=== PATIENT | female | born 1965 | race Caucasian/White ===

== ENCOUNTER → 2019-06-01 08:56 | Outpatient (BNVA) | payer MEDICARE, SELFPAY | PROVIDERS: Family Provider Family Medicine; PCP Family Medicine; Visit Provider Anesthesiology | DX: G89.29 Other chronic pain (principal); M54.16 Radiculopathy, lumbar region; M51.36 Other intervertebral disc degeneration, lumbar region; M47.817 Spondylosis without myelopathy or radiculopathy, lumbosacral region; M47.819 Spondylosis without myelopathy or radiculopathy, site unspecified; M54.12 Radiculopathy, cervical region; M50.30 Other cervical disc degeneration, unspecified cervical region; M25.562 Pain in left knee; M25.551 Pain in right hip; M79.7 Fibromyalgia | CPT/HCPCS: 99214 ==

== ENCOUNTER 2019-09-07 01:22 | Observation (INO) | payer SELFPAY ==
[2019-09-07] VITALS (20 sets, daily range): BP systolic 118–210; BP diastolic 65–119; PULSE 53–106; RESP 16–20; TEMP 36.5–36.9; O2SAT 93–99; BMI 32.1
--- NOTE | 2019-09-07 01:25 | ECG_ITS ---
Measurements Intervals [place] Rate: 58 P: 28 UT: 199 QRS: 0 QRSD: 87 T: 10 QT: 450 QTc: 444 SINUS BRADYCARDIA MINIMAL VOLTAGE CRITERIA FOR LVH, CONSIDER NORMAL VARIANT [MEETS CRITERIA IN ONE OF: R(aVL), S(V1), R(V5), R(V5/V6)+S(V1)] Compared to ECG 05/12/2018 20:50:33 No significant changes Electronically Signed On 09-08-2019 6:39:13 CDT by Akin Law M.D. [email or web address]
--- NOTE | 2019-09-07 01:55 | W.ED.NEUROSD ---
HPI - Neuro Symptoms/Deficit General: Chief Complaint: Neuro Symptoms/Deficit Stated Complaint: BLURRY VISION Time Seen by Provider: 09/07/19 01:23 History of Present Illness: HPI Narrative: Ms. Lopez is a nice 54-year-old female who comes in after 2 syncopal episodes at home. She states that she felt fine when going to bed but then got up at night to go to the bathroom and felt lightheaded and dizzy when she did so but was able to sit on the toilet without problem. She denied preceding chest pain, palpitations or abdominal/back pain. Patient had diarrhea on the toilet but when finished she tried to get up off the toilet and felt even more lightheaded and dizzy and fell against the wall sliding to the floor. The patient did not report any melena or hematochezia. The patient's family found her sitting against the wall and then while sitting against the wall she had another loss of consciousness for possibly 30 seconds. No seizure activity was described. EMS arrived and got a blood pressure of 73/44 initially. Since that time they report her blood pressure being erratic being high and low. The patient denies any lateralizing weakness, difficulty with speech but did have blurry vision upon initial awakening but that has completely resolved. Associated symptoms: Reports syncope; Deny chest pain, diaphoresis, headache(s), malaise, nausea, vertigo or vomiting Review of Systems General: Reports: other (negative unless marked) Const: Denies: fever, chills, body aches, fatigue, malaise or diaphoresis Eyes: Denies: change in vision or blurry vision ENMT: Denies: throat pain, painful swallowing, hoarseness, ear pain, ear discharge, Change in hearing or nasal discharge Card: Reports: lightheadedness and syncope; Denies: chest pain, palpitations, irregular heart rhythm, shortness of breath on exertion or shortness of breath when lying down Resp: Denies: shortness of breath, productive cough, non-productive cough, wheezing, coughing up blood or chest congestion GI: Denies: abdominal pain, nausea, vomiting, vomiting blood, coffee grounds in vomit, constipation, cramping, blood in stool or black tarry stool : Denies: flank pain, painful urination, urinary frequency, urinary urgency, decreased urine ouput, urinary incontinence or blood in urine Musc: Denies: neck pain, back pain, extremity pain, extremity swelling, joint pain, joint swelling, joint warmth or joint stiffness Skin/Breast: Denies: rash, skin tenderness or yellow skin Neuro: Denies: headache, numbness in extremities, weakness in extremities, changes in sensation, lack of coordination, difficulty walking, dizziness, vertigo or confusion Endo: Denies: excessive thirst, tired all the time, cold intolerance, excessive sweating, flushing or hot flashes Stoney/Lymph: Denies: easy bruising, easy bleeding, petechiae or enlarged lymph nodes All/Imm: Denies: hives, throat swelling, tongue swelling, facial swelling or acute wheezing PFSH ED PFSH: Medical History Chronic lumbosacral pain Chronic radicular low back pain DDD (degenerative disc disease), cervical DDD (degenerative disc disease), lumbar Encounter for long-term use of opiate analgesic Facet arthropathy Fibromyalgia Hip pain, right Left knee pain Lumbosacral spondylosis without myelopathy Radiculitis of left cervical region Surgical History S/P arthroscopic surgery of left knee S/P section S/P thyroidectomy S/P tonsillectomy and adenoidectomy 1989 Family History Mother Clotting disorder Cancer SKIN Social History Smoking and tobacco status: former smoker Second hand smoke exposure: Yes Alcohol intake: current Alcohol intake frequency: other Alcohol type: other Desire information about alcohol rehabilitation?: No Physical Exam Const: COMMON NORMALS: no apparent distress, oriented x3, no limitations, healthy appearing and well nourished EXAM LIMITATIONS: no altered mental status GENERAL APPEARANCE: cooperative, well kempt and well developed ORIENTATION/CONSCIOUSNESS: Yes awake HENMT: COMMON NORMALS: normocephalic, head/scalp atraumatic, hearing grossly normal bilaterally, external ears normal, EAC's normal, external nose normal and moist oral mucous membranes HEAD & SCALP: normal to inspection, normocephalic and atraumatic FACE & SINUS: normal facial exam and face symmetric NOSE: external nose normal and nares normal EXTERNAL EAR: Yes external ears normal EXTERNAL AUDITORY CANAL: EAC's normal MOUTH: oral and palatal mucosa normal and tongue normal Eye: COMMON NORMALS: PERRL, EOMs intact bilaterally, conjunctivae normal and no scleral icterus GENERAL EYE: normal appearance of both eyes and normal light reflex CONJUNCTIVA: Yes conjunctivae normal SCLERA: sclerae normal CORNEA: Yes corneas normal PUPIL: Yes PERRL DIRECT OPHTHALMOSCOPY: Yes normal light reflex Neck/C-Spine: COMMON NORMALS: full ROM, no lymphadenopathy, supple, no meningeal signs and no JVD GENERAL: Yes normal visual inspection and Yes trachea midline CERVICAL SPINE: Yes cervical ROM normal Chest: COMMONS NORMALS: inspection of chest normal and palpation of chest normal Resp: COMMON NORMALS: normal respiratory effort, no retractions, no use of accessory muscles and clear to auscultation bilaterally EFFORT & INSPECTION: Yes able to speak in complete sentences AUSCULTATION: clear to auscultation bilaterally Cardio: COMMON NORMALS: no JVD, regular rate, regular rhythm, S1 normal heart sound, S2 normal heart sound, no gallops, no clicks, no murmurs and no rub JUGULAR VENOUS DISTENTION: no JVD RATE: regular rate RHYTHM: regular rhythm HEART SOUNDS: S1 normal and S2 normal GI: COMMON NORMALS: soft to palpation, non-tender, no hepatosplenomegaly and no masses INSPECTION: Yes normal to inspection PALPATION: Yes soft and Yes no hepatosplenomegaly : COMMON NORMALS: Yes no CVA tenderness BLADDER/KIDNEY EXAM: Yes no CVA tenderness Back/Pelvis: COMMON NORMALS: no CVA tenderness, thoracic and lumbar spine normal to inspection, no thoracic nor lumbar tenderness and thoraco-lumbar ROM normal Extremity: COMMON NORMALS: normal to inspection, full ROM, normal capillary refill, no joint enlargement, no clubbing, cyanosis or edema and no calf tenderness Neuro: COMMON NORMALS: oriented x3, CN's II-XII intact bilaterally, moves all extremities, no focal motor deficits and no sensory deficits noted MENINGEAL SIGNS: Yes no meningeal signs Psych: COMMON NORMALS: mental status grossly normal, thought process normal, cooperative, affect normal, speech normal and activity/motor behavior normal APPEARANCE: Yes well kempt SPEECH: Yes normal speech THOUGHT PROCESS: normal thought process Skin: COMMON NORMALS: no rashes or lesions noted, skin turgor normal, no jaundice, no petechiae and no mottling GENERAL SKIN EXAM: no rashes or lesions noted and turgor normal Course ED course: 0200 -EKGs reviewed with Dr. Law, he does not feel these are consistent with a STEMI. He believes the findings are normal variant. Old EKG was also sent to him for comparison. Vital Signs: Vital signs: Vital Signs Temperature 98.2 F 09/07/19 01:25 Pulse Rate 66 09/07/19 04:41 Respiratory Rate 18 09/07/19 04:41 Blood Pressure 156/92 09/07/19 04:41 Pulse Oximetry 99 09/07/19 04:41 MDM - Neuro Symptoms/Deficit MDM Narrative: Medical decision making narrative: The case was reviewed with Dr. Bunn. The patient has an abnormal EKG, history of a tacky arrhythmia and a repeated episodes of syncope here. The patient is likely just volume depleted and had a vasovagal spell but with these risk factors she agrees the patient would be more safe if she were to stay for telemetry monitoring, formal cardiac rule out and possible echo. Lab Data: Labs: Lab Results 09/07/19 09/07/19 09/07/19 Range/Units 02:00 02:00 02:00 WBC 10.8 H (4.0-10.0) 10^3/ uL RBC 4.69 (4.1-5.3) 10^6/u L Hgb 13.4 (11.5-15.3) g/dL Hct 42.5 (37.0-47.0) % MCV 90.6 (81-99) fL MCH 28.6 (28.0-34.0) pg MCHC 31.5 (30.0-36.0) g/dL RDW 14.6 (12.1-15.1) % Plt Count 262 (130-400) 10^3/c mm MPV 11.7 H (7.4-10.4) fL Neut % (Auto) 76.6 % Lymph % (Auto) 15.3 % [place] % (Auto) 6.2 % Eos % (Auto) 0.7 % Baso % (Auto) 0.5 % Neut # (Auto) 8.3 H (1.8-7.7) 10^3/u L Lymph # (Auto) 1.7 (0.8-4.8) 10^3/u L [place] # (Auto) 0.7 (0.2-0.9) 10^3/u L Eos # (Auto) 0.1 (0.0-0.8) 10^3/u L Baso # (Auto) 0.1 (0.0-0.1) 10^3/u L Nucleated RBC % (a uto) 0 % Nucleated RBCs # 0.0 /100WBC Sodium 137 (136-145) mmol/L Potassium 4.4 (3.5-5.1) mmol/L Chloride 98 (98-107) mmol/L Carbon Dioxide 26 (22-29) mmol/L Anion Gap 17.4 (5-19) BUN 22 H (6-20) mg/dL Creatinine 1.0 H (0.5-0.9) mg/dL GFR Calculation 57.4 L (90-130) mL/min Glucose 119 H (65-115) mg/dL Calculated Osmolal ity 282 L (285-295) mOsm/k g Calcium 10.2 (8.5-10.5) mg/dL Magnesium 2.3 (1.7-2.3) mg/dL Total Bilirubin 0.7 (0.15-1.2) mg/dL AST 27 (0-32) U/L ALT 21 (0-33) U/L Alkaline Phosphata se 87 (35-105) IU/L Creatine Kinase 84 (26-192) U/L Troponin T Baselin e (0-10) ng/mL Troponin T 120 Min bishop (0-10) ng/mL Delta Troponin T (0-10) ABS# Total Protein 7.4 (6.6-8.7) g/dL Albumin 4.7 (3.5-5.2) g/dL Globulin 2.7 (1.3-4.6) g/dL TSH 4.86 H (0.27-4.20) uIU/ mL Urine Color (Yellow) Urine Appearance (CLEAR) Urine pH (5-7) Ur Specific Gravit y (1.005-1.030) Urine Protein (Negative) Urine Glucose (UA) (Normal) Urine Ketones (Negative) Urine Blood (Negative) Urine Nitrate (Negative) Urine Bilirubin (NEGATIVE) Urine Urobilinogen (Negative) mg/dL Ur Leukocyte Kimmie ase (Negative) Urine RBC (0-2) /hpf Urine WBC (0-5) /hpf Ur Squamous Epith Cells (0-5) Urine Bacteria (NONE) Urine Opiates Scre en (Negative) ng/mL Ur Barbiturates Sc reen (Negative) ng/mL Ur Phencyclidine S crn (Negative) ng/mL Ur Amphetamines Sc reen (Negative) ng/mL U Benzodiazepines Scrn (Negative) ng/mL Urine Cocaine Scre en (Negative) ng/mL U Marijuana (THC) Screen (Negative) ng/mL Serum Ketones Negative (Negative) 09/07/19 09/07/19 09/07/19 Range/Units 02:00 04:11 04:11 WBC (4.0-10.0) 10^3/ uL RBC (4.1-5.3) 10^6/u L Hgb (11.5-15.3) g/dL Hct (37.0-47.0) % MCV (81-99) fL MCH (28.0-34.0) pg MCHC (30.0-36.0) g/dL RDW (12.1-15.1) % Plt Count (130-400) 10^3/c mm MPV (7.4-10.4) fL Neut % (Auto) % Lymph % (Auto) % [place] % (Auto) % Eos % (Auto) % Baso % (Auto) % Neut # (Auto) (1.8-7.7) 10^3/u L Lymph # (Auto) (0.8-4.8) 10^3/u L [place] # (Auto) (0.2-0.9) 10^3/u L Eos # (Auto) (0.0-0.8) 10^3/u L Baso # (Auto) (0.0-0.1) 10^3/u L Nucleated RBC % (a uto) % Nucleated RBCs # /100WBC Sodium (136-145) mmol/L Potassium (3.5-5.1) mmol/L Chloride (98-107) mmol/L Carbon Dioxide (22-29) mmol/L Anion Gap (5-19) BUN (6-20) mg/dL Creatinine (0.5-0.9) mg/dL GFR Calculation (90-130) mL/min Glucose (65-115) mg/dL Calculated Osmolal ity (285-295) mOsm/k g Calcium (8.5-10.5) mg/dL Magnesium (1.7-2.3) mg/dL Total Bilirubin (0.15-1.2) mg/dL AST (0-32) U/L ALT (0-33) U/L Alkaline Phosphata se (35-105) IU/L Creatine Kinase (26-192) U/L Troponin T Baselin e 10 (0-10) ng/mL Troponin T 120 Min bishop (0-10) ng/mL Delta Troponin T (0-10) ABS# Total Protein (6.6-8.7) g/dL Albumin (3.5-5.2) g/dL Globulin (1.3-4.6) g/dL TSH (0.27-4.20) uIU/ mL Urine Color Yellow (Yellow) Urine Appearance Clear (CLEAR) Urine pH 5 (5-7) Ur Specific Gravit y 1.015 (1.005-1.030) Urine Protein Neg (Negative) Urine Glucose (UA) Norm (Normal) Urine Ketones Negative (Negative) Urine Blood Neg (Negative) Urine Nitrate Negative (Negative) Urine Bilirubin Neg (NEGATIVE) Urine Urobilinogen Norm (Negative) mg/dL Ur Leukocyte Kimmie ase Negative (Negative) Urine RBC Rare (0-2) /hpf Urine WBC Rare (0-5) /hpf Ur Squamous Epith Cells Rare (0-5) Urine Bacteria Trace (NONE) Urine Opiates Scre en Negative (Negative) ng/mL Ur Barbiturates Sc reen Negative (Negative) ng/mL Ur Phencyclidine S crn Negative (Negative) ng/mL Ur Amphetamines Sc reen Negative (Negative) ng/mL U Benzodiazepines Scrn Negative (Negative) ng/mL Urine Cocaine Scre en Negative (Negative) ng/mL U Marijuana (THC) Screen Negative (Negative) ng/mL Serum Ketones (Negative) 09/07/19 Range/Units 04:35 WBC (4.0-10.0) 10^3/ uL RBC (4.1-5.3) 10^6/u L Hgb (11.5-15.3) g/dL Hct (37.0-47.0) % MCV (81-99) fL MCH (28.0-34.0) pg MCHC (30.0-36.0) g/dL RDW (12.1-15.1) % Plt Count (130-400) 10^3/c mm MPV (7.4-10.4) fL Neut % (Auto) % Lymph % (Auto) % [place] % (Auto) % Eos % (Auto) % Baso % (Auto) % Neut # (Auto) (1.8-7.7) 10^3/u L Lymph # (Auto) (0.8-4.8) 10^3/u L [place] # (Auto) (0.2-0.9) 10^3/u L Eos # (Auto) (0.0-0.8) 10^3/u L Baso # (Auto) (0.0-0.1) 10^3/u L Nucleated RBC % (a uto) % Nucleated RBCs # /100WBC Sodium (136-145) mmol/L Potassium (3.5-5.1) mmol/L Chloride (98-107) mmol/L Carbon Dioxide (22-29) mmol/L Anion Gap (5-19) BUN (6-20) mg/dL Creatinine (0.5-0.9) mg/dL GFR Calculation (90-130) mL/min Glucose (65-115) mg/dL Calculated Osmolal ity (285-295) mOsm/k g Calcium (8.5-10.5) mg/dL Magnesium (1.7-2.3) mg/dL Total Bilirubin (0.15-1.2) mg/dL AST (0-32) U/L ALT (0-33) U/L Alkaline Phosphata se (35-105) IU/L Creatine Kinase (26-192) U/L Troponin T Baselin e (0-10) ng/mL Troponin T 120 Min bishop 6.85 (0-10) ng/mL Delta Troponin T -3.15 L (0-10) ABS# Total Protein (6.6-8.7) g/dL Albumin (3.5-5.2) g/dL Globulin (1.3-4.6) g/dL TSH (0.27-4.20) uIU/ mL Urine Color (Yellow) Urine Appearance (CLEAR) Urine pH (5-7) Ur Specific Gravit y (1.005-1.030) Urine Protein (Negative) Urine Glucose (UA) (Normal) Urine Ketones (Negative) Urine Blood (Negative) Urine Nitrate (Negative) Urine Bilirubin (NEGATIVE) Urine Urobilinogen (Negative) mg/dL Ur Leukocyte Kimmie ase (Negative) Urine RBC (0-2) /hpf Urine WBC (0-5) /hpf Ur Squamous Epith Cells (0-5) Urine Bacteria (NONE) Urine Opiates Scre en (Negative) ng/mL Ur Barbiturates Sc reen (Negative) ng/mL Ur Phencyclidine S crn (Negative) ng/mL Ur Amphetamines Sc reen (Negative) ng/mL U Benzodiazepines Scrn (Negative) ng/mL Urine Cocaine Scre en (Negative) ng/mL U Marijuana (THC) Screen (Negative) ng/mL Serum Ketones (Negative) EKG Data^: EKG 1: Attestation: I personally reviewed and interpreted this EKG as follows: EKG interpretation date: 09/07/19 EKG interpretation time: 01:36 Interpretation: Normal sinus rhythm at 56 beats a minute, borderline ST elevation V2, V3, V4 and V5. No reciprocal changes noted. Normal intervals, no blocks. Changed from previous. EKG 2: Attestation: I personally reviewed and interpreted this EKG as follows: EKG interpretation date: 09/07/19 EKG interpretation time: 01:49 Interpretation: Normal sinus rhythm at 58 beats a minute, ST segment elevation V2, V3, V4. No reciprocal changes. Normal intervals, no blocks. EKG 3: Attestation: I personally reviewed and interpreted this EKG as follows: EKG interpretation date: 09/07/19 EKG interpretation time: 03:40 Interpretation: Normal sinus rhythm at 61 beats a minute, nonspecific ST and T wave changes. Discharge Plan Discharge Patient Disposition: Placed in Observation Clinical Impression: Syncope Qualifiers: Syncope type: unspecified Qualified Code(s): R55 - Syncope and collapse Coding Level of Care Code ED [facility] [employer] Fwd Exam Comprehensive
[2019-09-07 02:21] LABS: Ketone (Acetest) Serum Negative (Negative)
[2019-09-07 02:24] LABS: Basophils # 0.1 10^3/uL (0.0-0.1); Basophils % 0.5 %; Eosinophils # 0.1 10^3/uL (0.0-0.8); Eosinophils % 0.7 %; Hematocrit 42.5 % (37.0-47.0); Hemoglobin 13.4 g/dL (11.5-15.3); Lymphocytes # 1.7 10^3/uL (0.8-4.8); Lymphocytes % 15.3 %; Mean Corpuscular HGB Conc 31.5 g/dL (30.0-36.0); Mean Corpuscular Hemoglobin 28.6 pg (28.0-34.0); Mean Corpuscular Volume 90.6 fL (81-99); Mean Platelet Volume 11.7 fL (7.4-10.4); Monocytes # 0.7 10^3/uL (0.2-0.9); Monocytes % 6.2 %; Neutrophils # 8.3 10^3/uL (1.8-7.7); Neutrophils % 76.6 %; Nucleated Red Blood Cells % 0 %; Platelet Count 262 10^3/cmm (130-400); Red Blood Count 4.69 10^6/uL (4.1-5.3); Red Cell Distribution Width 14.6 % (12.1-15.1); White Blood Count 10.8 10^3/uL (4.0-10.0)
[2019-09-07 02:28] LABS: Troponin(5th) Baseline 10 ng/mL (0-10)
[2019-09-07 02:38] LABS: Alanine Aminotransferase 21 U/L (0-33); Albumin Level 4.7 g/dL (3.5-5.2); Alkaline Phosphatase 87 IU/L (35-105); Anion Gap 17.4 (5-19); Aspartate Amino Transferase 27 U/L (0-32); Blood Urea Nitrogen 22 mg/dL (6-20); Calcium 10.2 mg/dL (8.5-10.5); Carbon Dioxide 26 mmol/L (22-29); Chloride 98 mmol/L (98-107); Creatine Phosphokinase 84 U/L (26-192); Globulin 2.7 g/dL (1.3-4.6); Glomerular Filtration Rate 57.4 mL/min (90-130); Glucose 119 mg/dL (65-115); Magnesium 2.3 mg/dL (1.7-2.3); Osmolality Calculated 282 mOsm/kg (285-295); Potassium 4.4 mmol/L (3.5-5.1); Sodium 137 mmol/L (136-145); Thyroid Stimulating Hormone 4.86 uIU/mL (0.27-4.20); Total Bilirubin 0.7 mg/dL (0.15-1.2); Total Protein 7.4 g/dL (6.6-8.7)
[2019-09-07] MEDS: sodium chloride 0.9% 1,000 ML 999 ML IV ×2 (02:52→04:17)
--- NOTE | 2019-09-07 03:25 | ECG_ITS ---
Measurements Intervals [place] Rate: 61 P: 41 LA: 193 QRS: 1 QRSD: 94 T: 4 QT: 441 QTc: [address] DEPRESSION [0.05+ mV ST DEPRESSION] Compared to ECG 05/12/2018 20:50:33 ST (T wave) deviation now present Sinus bradycardia no longer present Electronically Signed On 09-08-2019 6:45:03 CDT by Akin Law M.D. [email or web address]
[2019-09-07 04:23] LABS: Bilirubin Urine Neg (NEGATIVE); Blood Urine Neg (Negative); Glucose Urine UA Norm (Normal); Ketones Urine Negative (Negative); Nitrate Urine Negative (Negative); Protein Urine Neg (Negative); Specific Gravity, Urine 1.015 (1.005-1.030); Urine Appearance Clear (CLEAR); Urine Color Yellow (Yellow); pH Urine 5 (5-7)
[2019-09-07 04:24] LABS: Bacteria Urine TRACE; Leukocyte Esterase Urine Negative (Negative); RBC Urine RARE /hpf (0-2); Squamous Epithelial Cell Urine RARE (0-5); Urobilinogen Urine Norm (Negative); WBC Urine RARE /hpf (0-5)
[2019-09-07 04:25] LABS: Amphetamines Screen Urine Negative (Negative); Barbiturates Screen Urine Negative (Negative); Benzodiazepines Screen Urine Negative (Negative); Cocaine Screen Urine Negative (Negative); Opiate Screen Urine Negative (Negative); PCP Screen Urine Negative (Negative); THC Screen Urine Negative (Negative)
[2019-09-07 05:04] LABS: Troponin 5 2HR 6.85 ng/mL (0-10)
[2019-09-07 05:05] LABS: Troponin 5 2HR Delta -3.15 ABS# (0-10)
--- NOTE | 2019-09-07 07:16 | PC.NURSE ---
PT CAME TO ROOM 250-2 AND AMBULATED FROM THE [facility] TO BED. PT WAS EDUCATED ON ASKING STAFF FOR ASSISTANCE BEFORE AMBULATING D/T SYNCOPE. PT STATES THAT THEY HAVE PAIN ALL OVER, PICK A PLACE AND ITS A 10/10. PT HAS A NSR AT THIS TIME. WILL CONTINUE TO MONITOR.
--- NOTE | 2019-09-07 07:25 | ECG_ITS ---
Measurements Intervals [place] Rate: 72 P: 39 UT: 190 QRS: -15 QRSD: 94 T: 4 QT: 401 QTc: 442 SINUS RHYTHM MODERATE VOLTAGE CRITERIA FOR LVH, CONSIDER NORMAL VARIANT [MEETS CRITERIA IN ONE OF: R(aVL), S(V1), R(V5), R(V5/V6)+S(V1)] Compared to ECG 05/12/2018 20:50:33 Sinus bradycardia no longer present Electronically Signed On 09-08-2019 6:45:36 CDT by Akin Law M.D. [email or web address]
[2019-09-07 08:22] LABS: Troponin 5 6HR 7.88 ng/mL (0-10)
[2019-09-07 08:23] LABS: Troponin 5 6HR Delta -2.12 ng/L (0-12)
--- NOTE | 2019-09-07 09:22 | PC.CHAP ---
Pastoral Care Encounter/Spiritual Assessment Type of Contact [] Declined houseperson visit [] Patient/Family/Request visit [] Outpatient visit [] Follow-up visit [] Physician referral [] Code/Alert [x] Routine visit [] Staff referral [] Actively dying [] Patient sleeping [] Family support [] [] Out of room [] Palliative care [] [x] Receiving care in room [] Pre-surgical visit [] Trauma [] Long length of stay [] ICU visit [] Other: Relational/Emotional Strength [] Patient feels connected with others/family/visitors/staff [] Distress [] Loneliness/isolation [] Abandonment Spirituality of Patient [] Person of Irma [] Attends Confucianist of their Irma [] Believes in Prayer [] Reads Bible or Holiness materials [] There are Spiritual issues to be addressed Non Ferrous Material Handler Interventions [] Prayer [] Active listening [] Non-anxious presence [] Spiritual/emotional support [] Crisis/trauma care [] Spiritual counseling [] Bereavement support [] Provided bereavement packet [] Provided Bible/devotional materials [] Provided toy/stuffed animal, coloring book to patient or family member [] Provided Communion [] Anointing/Rindge [] Salvation [x] Completed spiritual assessment [] Other: Impact on Illness or Injury [] Angry [] Fearful [] Anxious [] Often cries [] Exhaustion [] Unable to work [] Unable to attend bahai [] Unable to walk/stand [] Unable to read [] Unable to drive [] Unable to eat/drink [] Unable to sleep [] Unable to be with family [] Patient intubated [] Other: Summary Time spent with patient
--- NOTE | 2019-09-07 09:23 | XR_ITS ---
WS: [id number] PROCEDURE: XR chest 2V* [id number] CLINICAL INFORMATION: syncope COMPARISON: May 12, 2018 FINDINGS: Heart: Normal cardiac silhouette. Lungs: Moderate chronic emphysematous changes. No acute pulmonary infiltrates. Bones: Postoperative changes lower cervical spine. XR/XR chest 2V* [id number] IMPRESSION: No acute chest findings
--- NOTE | 2019-09-07 09:27 | USCV_ITS ---
Swapnil Lopez Age: 54 Gender: F : 1965 Exam Date: 09/07/2019 10:29 Ordering Phys: Muriel Johnson DO Technologist: Kellen Retana [place] [facility] [place]: htn Aortic Velocity @ SMA (cm/s) 114 RIGHT KIDNEY LEFT KIDNEY Velocity (cm/s) Velocity (cm/s) Sys/Polk Sys/Polk Resistive Index Resistive Index 54.0 / 21.3 0.61 Proximal Renal Artery 51.9 / 7.9 0.85 95.6 / 33.3 0.65 Mid Renal Artery 38.2 / 14.4 0.62 43.8 / 14.0 0.68 Distal Renal Artery 32.4 / 10.8 0.67 66.9 / 20.7 0.69 Hilar 43.5 / 13.5 0.69 37.8 / 9.4 0.75 Upper Pole 39.0 / 10.6 0.73 28.8 / 10.4 0.64 Mid Pole 30.1 / 11.6 0.62 33.1 / 11.8 0.64 Lower Pole 30.1 / 8.5 0.72 0.80 Renal Aortic Ratio 0.46 Accleration Index (cm/sec2) 920.00 Hilar 1368.0 0 730.00 Upper Pole 443.00 527.00 Mid Pole 345.00 703.00 Lower Pole 354.00 108.0 Kidney Length (mm) 108.3 FINDINGS Normal renal arterial Doppler velocities. Normal Doppler velocities in the abdominal aorta. Normal ratios and indicis Normal kidney dimensions CONCLUSIONS No significant renal artery obstruction, based on the above findings Normal kidney dimensions Dr Sherwin Amador MD [facility] (Electronically Signed) Final Date: 07 September 2019 17:05 S
--- NOTE | 2019-09-07 09:27 | XR_ITS ---
WS: [id number] CERVICAL SPINE TECHNIQUE: 3 views of the cervical spine CLINICAL INFORMATION: neck pain COMPARISON: October 06, 2011 FINDINGS: Straightening of the normal cervical lordosis. Anterior interbody cervical fusion C5-C7 appears solid . Normal C1-C2 articulation. Mild disc space narrowing C7-T1. Moderate spondylitic changes with moder ate facet arthropathy in the mid cervical spine. . XR/XR cervical spine 3V* [id number] IMPRESSION: 1. Solid-appearing ACDF C5-C7. 2. Straightening of the normal cervical lordosis. 3. Mild disc space narrowing C7-T1
--- NOTE | 2019-09-07 09:28 | USCV_ITS ---
Swapnil Lopez Age: 54 Gender: F : 1965 Exam Date: 09/07/2019 10:04 Ordering Phys: Muriel Johnson DO Technologist: Kellen Retana [place] [facility] [place]: [place] BP: / HR: 71 Rhythm: Sinus Technical Quality: Adequate MEASUREMENTS (Male / Female) Normal Values 2D ECHO LV Diastolic Diameter PLAX 4.6 cm 4.2 - 5.9 / 3.9 - 5.3 cm LV Systolic Diameter PLAX 3.7 cm LV Chamber Size 3.1 cm IVS Diastolic Thickness 1.2 cm 0.6 - 1.0 / 0.6 - 0.9 cm IVS Systolic Thickness 1.2 cm LVPW Diastolic Thickness 1.8 cm 0.6 - 1.0 / 0.6 - 0.9 cm LVPW Systolic Thickness 2.1 cm RV Chamber Size 3.3 cm LVOT Diameter 2.0 cm LV Ejection Fraction 2D Teich 41.9 % LV Ejection Fraction MOD 2C 60.5 % LV Ejection Fraction 2C AL 61.0 % LA Diameter 3.9 cm LA Width 3.7 cm LA Height 4.3 cm RA Width 3.6 cm RA Height 4.4 cm Aorta at Sinotubular Diameter 2.6 cm M-MODE LV Diastolic Diameter MM 5.8 cm 4.2 - 5.9 / 3.9 - 5.3 cm LV Systolic Diameter MM 4.0 cm LV Ejection Fraction MM Teich 57.6 % IVS Diastolic Thickness MM 1.0 cm 0.6 - 1.0 / 0.6 - 0.9 cm IVS Systolic Thickness MM 1.4 cm LVPW Diastolic Thickness MM 1.1 cm 0.6 - 1.0 / 0.6 - 0.9 cm LVPW Systolic Thickness MM 1.7 cm Aortic Annulus Diameter 2.8 cm LA Ao Ratio MM 1.4 MV E Point Septal Separation 0.7 cm DOPPLER AV Peak Velocity 157.0 cm/s LVOT Peak Velocity 113.0 cm/s AV Area Cont Eq vti 2.1 cm squared AV Area Cont Eq pk 2.3 cm squared MV Area PHT 3.4 cm squared Mitral E to A Ratio 0.8 MV E' Velocity 8.0 cm/s Mitral E to MV E' Ratio 12.2 Mitral E to LV E' Lateral Ratio 12.6 Mitral E to LV E' Septal Ratio 11.9 TR Peak Velocity 197.0 cm/s TR Peak Gradient 15.5 mmHg TV Peak E Velocity 59.0 cm/s Right Atrial Pressure 3.0 mmHg Pulmonary Artery Systolic Pressu 18.5 mmHg PV Peak Velocity 97.0 cm/s RV Acceleration Time 0.2 s RV Ejection Time 0.3 s RV AcT/ET 0.5 FINDINGS Left Ventricle Normal left ventricular size and systolic function, EF 60 %. No regional wall motion abnormalities. Grade I/IV diastolic dysfunction (abnormal relaxation filling pattern), normal to mildly elevated filling pressures. Right Ventricle Normal right ventricular size and systolic function. Right Atrium The right atrium is normal in size. Left Atrium The left atrium is normal in size. Mitral Valve Trace mitral valve regurgitation. Some thickening in the anterior mitral leaflet with no masses or vegetations Aortic Valve No gross abnormalities noted Tricuspid Valve No gross abnormalities noted Pulmonic Valve Pulmonic valve not well visualized. Pericardium Normal pericardium without effusion. Aorta Normal ascending aorta dimension. CONCLUSIONS Normal left ventricular size and systolic function, EF 60 %. No regional wall motion abnormalities. Grade I/IV diastolic dysfunction (abnormal relaxation filling pattern), normal to mildly elevated filling pressures. Trace mitral valve regurgitation. Some thickening in the anterior mitral leaflet with no masses or vegetations. There is no pericardial effusion. There are no intracardiac masses. Compared to the study from 01/28/2013, there may not be a significant change Dr Sherwin Amador MD [facility] (Electronically Signed) Final Date: 07 September 2019 14:30 S
--- NOTE | 2019-09-07 09:29 | USCV_ITS ---
Swapnil Lopez Age: 54 Gender: F : 1965 Exam Date: 09/07/2019 10:18 Ordering Phys: Muriel Johnson DO Technologist: Kellen Retana Exam Location: [facility]_ Indication: Syncope Risk Factors: Previous Vascular Surgery: Right Brachial BP: / Left Brachial BP: / Right Left Velocity (cm/s) Spectral Plaque Velocity (cm/s) Spectral Plaque Syst/Diast Broadening Syst/Diast Broadening 76.10/ 13.20 Prox CCA 71.70 / 16.50 59.00/ 10.90 Mid CCA 69.50 / 17.60 69.10/ 18.60 Distal CCA 91.50 / 29.80 21.70/ 9.90 Prox ICA 42.90 / 17.60 49.20/ 24.20 Mid ICA 63.90 / 27.70 51.70/ 19.20 Distal ICA 66.40 / 34.50 58.10 ECA 48.10 0.88 ICA/CCA 0.96 Antegrade Vertebral Antegrade 25.00/ 7.40 cm/s 29.00/ 10.10 cm/s Tri Subclavian Tri 83.20 93.20 FINDINGS Intimal thickening and minimal plaques at the bifurcations bilaterally Normal Doppler flow velocities Antegrade flow in the vertebral arteries bilaterally CONCLUSIONS Intimal thickening and minimal plaques at the bifurcations bilaterally. No significant stenosis, based on the above findings. Dr Sherwin Amador MD [facility] (Electronically Signed) Final Date: 07 September 2019 17:00 S
--- NOTE | 2019-09-07 09:30 | P.HP_ITS ---
Providers/Chief Complaint Admitting Physician: Maria Elena Jay MD Primary Care Provider: Tai Caballero Jr, MD Chief Complaint: BLURRY VISION History of Present Illness Swapnil Lopez is a 54 year old female with a past medical history of hypertension, renal artery stenosis, significant venous reflux disease as well as anxiety, depression, osteoarthritis and previous chronic pain on daily opioids that presented to the emergency department with syncopal episode. She reported that she got up last night went to the bathroom at around 11 PM when she had an episode of diarrhea, stood up and suddenly felt dizzy and reported that her family member witnessed the episode and she was noted to be out for approximately 60 seconds according to family, reported vision changes at that time, blurry vision. She stated that vision changes have now resolved, she does not recall any loss of consciousness, no head trauma, reported that she only had one episode of diarrhea, no continued loose stools, no nausea or vomiting. She reports that she has had slightly decreased intake over the past 24 to 48 hours, no abdominal pain. Patient reports chronic headaches, no history of migraine with aura, reports that she recently lost her insurance and is been without a lot of her medications for the past 5 weeks including some of her chronic pain medications. She was previously on methadone and oxycodone of which she has been off of both medications. She reports a history of chronic lumbar pain and chronic cervical pain, no new paresthesias, chronic numbness and tingling in the feet bilaterally that is unchanged. She denies any vision changes at time of exam. Patient denies any fevers or chills, no increasing cough or sputum production. Reports seasonal allergies which are common for her, no exposure to anyone with viral illness, no exposure to anyone with confirmed COVID-19. Patient reports severe back and neck pain during this episode and that was the reason she came into the ER for further evaluation and treatment, reports that pain has now improved. She was seen and evaluated in the emergency department due to concern for possible loss of consciousness and dehydration she was admitted for further evaluation and treatment. At time of exam patient denies any chest pain or shortness of breath, she denies any significant neck or back pain, no lightheadedness or dizziness, no vision changes. Review of Systems Const: Denies: fever or chills Eyes: Denies: change in vision ENMT: Denies: nasal congestion Card: Denies: chest pain, palpitations or edema Resp: Denies: shortness of breath, productive cough or coughing up blood GI: Reports: diarrhea; Denies: abdominal pain, nausea, vomiting, constipation, blood in stool or black tarry stool : Denies: painful urination or blood in urine Musc: Denies: extremity pain or muscle cramps Skin/Breast: Denies: rash or new lesion Neuro: Reports: numbness in extremities (Chronic, middle digits of the feet bilaterally that is unchanged); Denies: headache, changes in sensation, difficulty walking, frequent falls, dizziness, vertigo, confusion, behavioral changes, slurred speech, difficulty communicating thoughts, seizure-like activity or involuntary movements Psych: Denies: anxiety or depression Endo: Denies: excessive urination or hot flashes Stoney/Lymph: Denies: easy bruising or easy bleeding Medications/Allergies Home Medications Medication Instructions Recorded Confirmed Last Taken Type carbidopa 25 mg-levodopa 100 mg 1 tab PO BEDTIME tab 05/30/19 09/07/19 09/06/19 History tablet citalopram 40 mg tablet 20 mg PO DAILY 05/30/19 09/07/19 09/06/19 History estradiol 0.5 mg tablet 0.5 mg PO DAILY 05/30/19 09/07/19 Unknown History levothyroxine 100 mcg capsule 100 mcg PO DAILY 05/30/19 09/07/19 09/06/19 Histor y lisinopril 40 mg tablet 40 mg PO DAILY 05/30/19 09/07/19 09/06/19 History medroxyprogesterone 2.5 mg tablet 2.5 mg PO DAILY 05/30/19 09/07/19 Unknown History quetiapine 25 mg tablet 25 mg PO DAILY tab 05/30/19 09/07/19 09/06/19 History tizanidine 4 mg capsule 8 mg PO Q6H PRN 30 Days #240 cap 06/01/19 09/07/19 09/06/19 Rx gabapentin 800 mg PO TID 09/07/19 09/07/19 Unknown History trazodone 50 mg PO BEDTIME PRN 09/07/19 09/07/19 Unknown History Allergies Allergy/AdvReac Type Severity Reaction Status Date / Time No Known Allergies Allergy Verified 06/01/19 09:40 PFSH Acute PFSH: Medical History (Updated 09/07/19 @ 09:39 by Muriel Johnson DO) Chronic lumbosacral pain Chronic radicular low back pain DDD (degenerative disc disease), cervical DDD (degenerative disc disease), lumbar Encounter for long-term use of opiate analgesic Facet arthropathy Fibromyalgia Hip pain, right History of cardiac arrhythmia History of Graves' disease History of peptic ulcer Hypothyroidism (acquired) Left knee pain Lumbosacral spondylosis without myelopathy Radiculitis of left cervical region Renal artery stenosis Venous reflux Surgical History S/P arthroscopic surgery of left knee S/P section S/P thyroidectomy S/P tonsillectomy and adenoidectomy 1989 Family History Mother Clotting disorder Cancer SKIN Social History (Updated 09/07/19 @ 09:40 by Muriel Johnson DO) Smoking and tobacco status: former smoker Second hand smoke exposure: Yes Alcohol intake: current Alcohol intake frequency: holidays/special occasions only Alcohol type: other Desire information about alcohol rehabilitation?: No Vitals/I&O/Wt Last Vital Signs Temp 98.5 F 09/07/19 07:22 Pulse 60 09/07/19 07:22 Resp 16 09/07/19 07:22 BP 158/105 09/07/19 08:21 Pulse Ox 98 09/07/19 07:22 09/06/19 09/07/19 09/07/19 22:59 06:59 14:59 Intake Total 1416.25 / 1416.25 360 / 360 Balance 1416.25 / 1416.25 360 / 360 Weight last 48 hrs Weight 104.326 kg Physical Exam Const: COMMON NORMALS: oriented x3 and alert GENERAL APPEARANCE: cooperative ORIENTATION/CONSCIOUSNESS: Yes awake, Yes oriented to person, Yes oriented to place and Yes oriented to time HENMT: COMMON NORMALS: normocephalic and head/scalp atraumatic HEAD & SCALP: normocephalic and atraumatic Eye: COMMON NORMALS: PERRL PUPIL: Yes PERRL Neck/C-Spine: COMMON NORMALS: supple GENERAL: Yes normal visual inspection Resp: COMMON NORMALS: normal respiratory effort and clear to auscultation bilaterally EFFORT & INSPECTION: Yes able to speak in complete sentences AUSCULTATION: clear to auscultation bilaterally, no rhonchi and no wheezes Cardio: COMMON NORMALS: regular rate, regular rhythm and no murmurs RATE: regular rate RHYTHM: regular rhythm GI: COMMON NORMALS: soft to palpation and non-tender INSPECTION: No abdominal distension AUSCULTATION: Yes normoactive bowel sounds PALPATION: Yes soft : COMMON NORMALS: Yes no CVA tenderness BLADDER/KIDNEY EXAM: Yes no CVA tenderness Back/Pelvis: COMMON NORMALS: no CVA tenderness OTHER: Tenderness to palpat ion over the paracervical muscles and trapezius bilaterally Extremity: COMMON NORMALS: no clubbing, cyanosis or edema and no calf tender ness Neuro: COMMON NORMALS: oriented x3, CN's II-XII intact bilaterally, moves all extremities and no focal motor deficits SENSORIUM/ORIENTATION: Yes alert, Yes oriented to person, Yes oriented to place and Yes oriented to time SPEECH: speech normal Psych: COMMON NORMALS: mental status grossly normal and cooperative Skin: COMMON NORMALS: no rashes or lesions noted GENERAL SKIN EXAM: no rashes or lesions noted Data : 09/07/19 02:00 09/07/19 02:00 A&P Assessment and plan (1) Syncope: Patient reports what sounds to be vasovagal syncope versus episode of orthostatic hypotension. Will give IV fluids and continue close monitoring on telemetry. Patient has documented history of tacky arrhythmia, unknown etiology and patient is uncertain of this. Will check echocardiogram for further evaluation and also check bilateral carotid ultrasound. No focal neurologic deficits at this time, patient is alert and oriented, no headache or vision changes and moves all extremities appropriately. If continued issues will consider CT scan of the head for further evaluation. Continue with neuro checks Checking thyroid function as noted Patient has been off of some of her sedating medications including her daily opioids, however no concern for acute withdrawal as this is been absent for the past 5 weeks. Status: Acute Qualifiers: Syncope type: unspecified Qualified Code(s): R55 - Syncope and collapse (2) Chronic lumbosacral pain: Previously followed by pain clinic, has not had any follow-up since losing her insurance in the past 5 to 6 weeks. Patient reports being off of her previously prescribed methadone and oxycodone for the past 5 weeks. Status: Chronic (3) Renal artery stenosis: History of renal artery stenosis, had appointment scheduled with washer operator in [place], however has not had follow-up due to losing insurance. We will recheck renal artery ultrasound at this time Status: Acute (4) Hypothyroidism (acquired): With a history of thyroidectomy due to Graves' disease TSH slightly elevated, will check T3 and T4 and adjust levothyroxine if indicated Status: Acute Additional A&P Information Chronic musculoskeletal pain: Previously followed by pain management, has not been seen in over 5 weeks due to losing insurance coverage. Previously on methadone and oxycodone, both have been discontinued for the past 5 weeks Refractory hypertension: Reported history of renal artery stenosis, has not followed with washer operator as previously scheduled due to losing insurance, will obtain ultrasound for further evaluation as noted above. Patient was previously on estrogen replacement therapy, no longer on this, reported she discontinued it 3 years ago Anxiety Depression Fibromyalgia Attestations Medical Necessity Statement*: observation due to syncope, expected stay less than 2 midnights Coding Level of Care Code Acute Beater Room Supervisor for g Fwd Exam Comprehensive Diagnoses Syncope R55 Syncope type: unspecified Chronic lumbosacral pain M54.5; G89.29 Renal artery stenosis I70.1 Hypothyroidism (acquired) E03.9
[2019-09-07 09:50] LABS: Free T4 Free Thyroxine 0.92 ng/dL (0.82-1.77); T3 Free 2.5 PG/ML (2.0-4.4)
[2019-09-07] MEDS: levothyroxine 100 mcg Tablet PO (11:48)
[2019-09-07] MEDS: sodium chloride 0.9% 1,000 ML 100 ML IV (11:48)
[2019-09-07] MEDS: quetiapine 25 mg Tablet PO (11:49)
[2019-09-07] MEDS: citalopram 20 mg Tablet PO (11:49)
[2019-09-07] MEDS: lisinopril 20 mg Tablet 40 MG PO (11:49)
[2019-09-07] MEDS: hyDRALAzine 20 mg/mL INJ 1 mL 10 MG IVP ×3 (13:15→23:28)
[2019-09-07] MEDS: acetaminophen 325 mg Tablet 650 MG PO (15:28)
[2019-09-07] MEDS: gabapentin 400 mg Capsule 800 MG PO ×2 (15:29→20:05)
[2019-09-07] MEDS: carbidopa-levodopa 25-100mg Tablet 1 EACH PO (20:05)
[2019-09-08] VITALS (7 sets, daily range): BP systolic 147–181; BP diastolic 74–99; PULSE 70–97; RESP 16–20; TEMP 36.4–36.7; O2SAT 94–98
[2019-09-08] MEDS: hyDRALAzine 20 mg/mL INJ 1 mL 10 MG IVP (03:39)
[2019-09-08] MEDS: HYDROcodone-acetaminophen 5-325 mg Tablet 1 TAB PO ×3 (03:43→15:56)
[2019-09-08 05:34] LABS: Basophils % 0.5 %; Eosinophils # 0.2 10^3/uL (0.0-0.8); Eosinophils % 3.1 %; Hematocrit 43.4 % (37.0-47.0); Hemoglobin 13.8 g/dL (11.5-15.3); Lymphocytes # 1.8 10^3/uL (0.8-4.8); Lymphocytes % 31.4 %; Mean Corpuscular HGB Conc 31.8 g/dL (30.0-36.0); Mean Corpuscular Hemoglobin 28.9 pg (28.0-34.0); Mean Corpuscular Volume 90.8 fL (81-99); Mean Platelet Volume 11.7 fL (7.4-10.4); Monocytes # 0.4 10^3/uL (0.2-0.9); Neutrophils # 3.4 10^3/uL (1.8-7.7); Neutrophils % 58.5 %; Nucleated Red Blood Cells % 0 %; Platelet Count 265 10^3/cmm (130-400); Red Blood Count 4.78 10^6/uL (4.1-5.3); Red Cell Distribution Width 14.9 % (12.1-15.1); White Blood Count 5.9 10^3/uL (4.0-10.0)
[2019-09-08 05:58] LABS: Anion Gap 17.9 (5-19); Blood Urea Nitrogen 11 mg/dL (6-20); Calcium 9.5 mg/dL (8.5-10.5); Carbon Dioxide 24 mmol/L (22-29); Chloride 104 mmol/L (98-107); Glomerular Filtration Rate 103.4 mL/min (90-130); Glucose 125 mg/dL (65-115); Osmolality Calculated 292 mOsm/kg (285-295); Potassium 3.9 mmol/L (3.5-5.1); Sodium 142 mmol/L (136-145)
[2019-09-08] MEDS: gabapentin 400 mg Capsule 800 MG PO ×2 (08:48→15:47)
[2019-09-08] MEDS: levothyroxine 100 mcg Tablet PO (08:48)
[2019-09-08] MEDS: quetiapine 25 mg Tablet PO (08:48)
[2019-09-08] MEDS: citalopram 20 mg Tablet PO (08:49)
[2019-09-08] MEDS: lisinopril 20 mg Tablet 40 MG PO (08:49)
--- NOTE | 2019-09-08 09:55 | CT_ITS ---
WS: [id number] CTA HEAD AND NECK TECHNIQUE: Contrast enhanced CTA of the head and neck with coronal and sagittal reformatted images an d maximum intensity projection (MIP) images. NASCET criteria utilized. CLINICAL INFORMATION: syncope, headache, blurred vision COMPARISON: None. DLP: 2894.[address] scans at [facility] use at least one of these dose optimization techniques: automat ed exposure control; mA and/or kV adjustment per patient size (includes targeted exams where dose is matched to clinical indication); or iterative reconstruction. FINDINGS: Noncontrast CT head is normal. No evidence of intracranial hemorrhage or mass effect. Katina l cunha-white differentiation. Anterior interbody cervical fusion C5-C7. 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 No significant right ICA stenosis. Right ICA is patent to the skull base. LEFT: Left common carotid artery is patent. No significant left ICA stenosis. Left ICA is patent to t he skull base. INTRACRANIAL CTA: Left dominant vertebral artery. Smaller but patent right vertebral artery mainly ends in PICA. Basila r artery is patent. Both ICAs are patent at the skull base. Normal vascularity to the MICHELLE and MCA ter ritories bilaterally. No evidence of high-grade proximal stenosis or aneurysm. 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 Normal vascularity to the TUBING MACHINE OPERATOR territory bilaterally. CT/CT angio headneck* [id number] IMPRESSION: 1. No significant ICA stenosis bilaterally. 2. Unremarkable intracranial CTA with no evidence of flow-limiting stenosis. 3. Noncontrast head CT is normal.
[2019-09-08] MEDS: iohexol 350 mg/mL 100 mL Btl IV (10:34)
--- NOTE | 2019-09-08 14:55 | P.DS_ITS ---
Discharge Providers Date of Admission: 09/07/19 05:58 Date of Discharge: September 08, 2019 Attending Provider at Admission: Maria Elena Jay MD Attending Provider at Discharge: Muriel Johnson DO Primary Care Provider: Tai Caballero Jr, MD Diagnoses at Discharge Discharge Diagnosis (1) Syncope: Status: Acute Qualifiers: Syncope type: unspecified Qualified Code(s): R55 - Syncope and collapse (2) Chronic lumbosacral pain: Status: Chronic (3) Renal artery stenosis: Status: Acute (4) Hypothyroidism (acquired): Status: Acute Reason for Visit Reason for Visit: Reason For Visit: BLURRY VISION Hospital Course Hospital Course: Patient was seen and evaluated in the emergency department noted to have concern for possible syncopal episode and admitted for observation. She was monitored on telemetry with no acute cardiac events. She had serial neurologic exams performed. She had echocardiogram, carotid ultrasound, renal artery ultrasound and CT scan of the head performed. Patient had reported GI losses in the night prior to her episode and symptoms that were felt to be related to vasovagal syncope. Her neurologic checks continue to remain intact with no acute deficits. She did have some paraspinal muscle tightness in the cervical region and in the trapezius bilaterally due to the fall that she sustained at home. Cervical spine x-rays did not show any acute changes, did show prior surgical changes. She did ultimately have a CT scan of her head due to some reported blurry vision, this did not show any acute abnormalities, patient reported that she is supposed to be wearing glasses but has not been to the eye doctor, recommended that she go to the eye doctor for further evaluation and treatment following discharge and to follow-up with her primary care provider. Discussed findings of echocardiogram, carotid ultrasound, CT scan of the head as well as renal artery ultrasound with patient and she verbalized understanding. Discussed with patient plan for discharge to home with close outpatient follow-up, she verbalized understanding and agreed with plan. On date of discharge she denied any chest pain or shortness of breath, no headache, minor blurry numbness in her vision that improved, reported headache of what sounded to be related to tension migraine Physical Exam Const: COMMON NORMALS: oriented x3 and alert GENERAL APPEARANCE: cooperative ORIENTATION/CONSCIOUSNESS: Yes awake, Yes oriented to person, Yes oriented to place and Yes oriented to time HENMT: COMMON NORMALS: normocephalic and head/scalp atraumatic HEAD & SCALP: normocephalic and atraumatic Eye: COMMON NORMALS: PERRL PUPIL: Yes PERRL Neck/C-Spine: COMMON NORMALS: supple GENERAL: Yes normal visual inspection Resp: COMMON NORMALS: normal respiratory effort and clear to auscultation bilaterally EFFORT & INSPECTION: Yes able to speak in complete sentences AUSCULTATION: clear to auscultation bilaterally, no rhonchi and no wheezes Cardio: COMMON NORMALS: regular rate, regular rhythm and no murmurs RATE: regular rate RHYTHM: regular rhythm GI: COMMON NORMALS: soft to palpation and non-tender INSPECTION: No abdominal distension AUSCULTATION: Yes normoactive bowel sounds PALPATION: Yes soft : COMMON NORMALS: Yes no CVA tenderness BLADDER/KIDNEY EXAM: Yes no CVA tenderness Back/Pelvis: COMMON NORMALS: no CVA tenderness OTHER: Tenderness to palpation over the paracervical muscles and trapezius bilaterally Extremity: COMMON NORMALS: no clubbing, cyanosis or edema and no calf tenderness Neuro: COMMON NORMALS: oriented x3, CN's II-XII intact bilaterally, moves all extremities and no focal motor deficits SENSORIUM/ORIENTATION: Yes alert, Yes oriented to person, Yes oriented to place and Yes oriented to time SPEECH: speech normal Psych: COMMON NORMALS: mental status grossly normal and cooperative Skin: COMMON NORMALS: no rashes or lesions noted GENERAL SKIN EXAM: no rashes or lesions noted Discharge Data Data Completed and Pending: Completed Studies During Hospitalization Category Date Time Status CT angio headneck * [id number] Rout ine Cat Scan 09/08/19 09:55 Completed XR cervical spine 3V* [id number] Routine Exams 09/07/19 09:27 Completed XR chest 2V* [id number] Routine Exams 09/07/19 09:23 Completed CV carotid duplex BI* [id number] Routine Ultrasound 09/07/19 09:29 Completed CV echo complete* [id number] Routine Ultrasound 09/07/19 09:28 Completed CV renal doppler [id number] Routine Ultrasound 09/07/19 09:27 Completed Labs from last 24 hours 09/08/19 09/08/19 04:46 04:46 WBC 5.9 RBC 4.78 Hgb 13.8 Hct 43.4 MCV 90.8 MCH 28.9 MCHC 31.8 RDW 14.9 Plt Count 265 MPV 11.7 H Neut % (Auto) 58.5 Lymph % (Auto) 31.4 [place] % (Auto) 6.0 Eos % (Auto) 3.1 Baso % (Auto) 0.5 Neut # (Auto) 3.4 Lymph # (Auto) 1.8 [place] # (Auto) 0.4 Eos # (Auto) 0.2 Baso # (Auto) 0.0 Nucleated RBC % (a uto) 0 Nucleated RBCs # 0.0 Sodium 142 Potassium 3.9 Chloride 104 Carbon Dioxide 24 Anion Gap 17.9 BUN 11 Creatinine 0.6 GFR Calculation 103.4 Glucose 125 H Calculated Osmolal ity 292 Calcium 9.5 Vitals: Last Vital Signs Temp 98.1 F 09/08/19 11:22 Pulse 97 09/08/19 12:14 Resp 17 09/08/19 11:22 BP 147/74 09/08/19 11:22 Pulse Ox 98 09/08/19 12:14 Discharge Plan Discharge Patient Disposition: Home, Self-Care Condition: Stable Prescriptions: New hydrocodone-acetaminophen 5-325 mg Tablet 1 tab PO Q6H PRN (Reason: Moderate To Severe Pain) 5 Days Qty: 20 RF: 0 Continued levothyroxine 100 mcg capsule 100 mcg PO DAILY RF: 0 quetiapine [Seroquel] 25 mg tablet 25 mg PO DAILY RF: 0 citalopram 40 mg tablet 20 mg PO DAILY RF: 0 lisinopril 40 mg tablet 40 mg PO DAILY RF: 0 carbidopa-levodopa 25-100 mg tablet 1 tab PO BEDTIME RF: 0 tizanidine 4 mg capsule 8 mg PO Q6H PRN (Reason: muscle spasticity) 30 Days Qty: 240 RF: 1 trazodone 50 mg Tablet 50 mg PO BEDTIME PRN (Reason: Insomnia) RF: 0 gabapentin 800 mg Tablet 800 mg PO TID RF: 0 Discontinued estradiol 0.5 mg tablet 0.5 mg PO DAILY RF: 0 medroxyprogesterone 2.5 mg tablet 2.5 mg PO DAILY RF: 0 Discharge Orders: Discharge Order (Routine); Ordered 09/08/19 Ordered By: Muriel Johnson Referrals: Anh Killian DO [Physician] - 09/12/19 1:15 pm Discharge Diet: Advance as tolerated and Cardiac Discharge Activity: Increase activity as tolerated, Limit activity as instructed and Return to work/school after cleared by PCP/Specialist Activity Restrictions/Additional Instructions: Prescribed pain medication to use for paraspinal muscle pain. For any worsening pain call your physician or present to the ED. Do not operate any equipment or operate any motor vehicle after taking this medication. This medication may make you somewhat sedated and dizzy, caution with use. Follow-up with your primary care provider as scheduled on 09/11 at 1:15 PM Follow-up with pain management clinic as previously scheduled Recommend follow-up with Dr. Younbglood, thermodynamics engineer as previously scheduled Call your physician or present to the ER for any acute illness or concern Discharge Attestations Time Spent in Discharge Care*: greater than 30 min Quality Metrics Clinical Quality Measures During this hospital stay, did patient experience: None Coding Level of Care Code Acute Loading Manager for Tungg Fwd Diagnoses Syncope R55 Syncope type: unspecified Chronic lumbosacral pain M54.5; G89.29 Renal artery stenosis I70.1 Hypothyroidism (acquired) E03.9
--- NOTE | 2019-09-08 16:11 | PC.NURSE ---
Discharge instructions given per the physician's orders. Patient verbalized understanding and did not have any further questions. Patient ride to arrive at approximately [phone].
== END 2019-09-08 18:24 | disposition home or self-care (01) ==
LOC: ER 04:50 → MEDSURG 08:57
PROVIDERS: Admitting Provider Hospitalist; Emergency Provider Emergency Medicine; Family Provider Family Medicine; PCP Family Medicine; Visit Provider Family Medicine
DX: R55 Syncope and collapse (principal); G89.29 Other chronic pain; M54.5 Low back pain; I70.1 Atherosclerosis of renal artery; E03.9 Hypothyroidism, unspecified; I10 Essential (primary) hypertension; M19.90 Unspecified osteoarthritis, unspecified site; Z79.891 Long term (current) use of opiate analgesic; M79.7 Fibromyalgia; Z87.891 Personal history of nicotine dependence; F41.9 Anxiety disorder, unspecified; F32.9 Major depressive disorder, single episode, unspecified
CPT/HCPCS: 12345; 36415; 70496; 70498; 71046; 72040; 80048; 80053; 80306; 81001; 82009; 82550; 83735; 84439; 84443; 84481; 84484; 85025; 93005; 93306; 93880; 93975; 96360; 96361; 96375; 99284; 99285; G0378; J0360; J7030; Q9967